=== PATIENT | male | born 1950 | race Caucasian/White ===

== ENCOUNTER 2016-05-03 07:57 | Day surgery (SDC) | payer OTHER ==
[~2016-05-03 07:57] MED LIST: Acetaminophen TAB* 325 MG PO PRN; Buffered Lidocaine 1% SYR 3ML* 3 ML/SYR SYRINGE INTRADERM ONE
[2016-05-03] MEDS ORDERED: Midazolam* 1 MG/ML 2 ML VIAL (2 MG) ONE ×2 (09:11→09:27)
[2016-05-03] MEDS ORDERED: acetaZOLAMIDE TAB* 250 MG ONE (09:49)
[2016-05-03] MEDS ORDERED: Cyclopentolate 1% OPTH.SOL* 2 ML BTL ONE (09:49)
[2016-05-03] MEDS ORDERED: Neomycin/Polymy/Dex OPHTH.OIN* 3.5 GM ONE (09:50)
[2016-05-03] MEDS ORDERED: Flurbiprofen 0.03% OPTH.SOL* 2.5 ML BTL ONE (09:50)
[2016-05-03] MEDS ORDERED: Tetracaine 0.5% OPTH.SOL 4 ML* 1 DROP BTL ONE (09:50)
[2016-05-03] MEDS ORDERED: Povidone Iodine 5% OPTH* 30 ML BTL ONE (09:50)
[2016-05-03] MEDS ORDERED: Lidocaine 1% MPF* 2 ML VIAL ONE (09:50)
[2016-05-03] MEDS ORDERED: Phenylephrine 2.5% OPTH.SOL* 2 ML BTL ONE (09:50)
[2016-05-03 10:17] VITALS: BP 139/79
--- NOTE | 2016-05-04 05:19 | OP ---
DATE OF OPERATION: 05/03/16 - [facility] DATE OF : 54 SURGEON: Dom Levi MD ANESTHESIOLOGIST: Shasha Garcia MD ANESTHESIA: Monitored anesthesia care. 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 POST-OP DIAGNOSIS: Cataract of left eye with pseudoexfoliation. IMPLANTS: MN60 AC 19.0 diopter lens, left eye. COMPLICATIONS: None. DESCRIPTION OF PROCEDURE: The patient was given phenylephrine 2.5% and cyclopentolate 1% eye drops to the operative eye in the preoperative area. The patient was brought to the operative room where a time-out was taken to the identify the correct patient, site and side of the surgery. The patient's left eye was prepped and draped in the usual sterile fashion and 5% Betadine. A second time- out was taken to verify the correct patient, site and side of surgery and correct lens selection. A lid speculum was placed to the left eye. A 1 mm paracentesis blade was used to make a clear corneal incision in the inferior temporal position. Preservative free 1% lidocaine was injected into anterior chamber. DuoVisc was then injected into the anterior chamber. A 2.75 mm keratome blade was used to make a triplanar incision at the superotemporal position. A cystotome was used to initiate a capsulorrhexis, which was completed with Utrata forceps in the continuous and curvilinear manner. Hydrodissection of the lens was then performed with BSS on a cannula. The lens could be spun in the capsular bag. The phacoemulsification handpiece was then used with a divide and conquer technique to remove the nucleus in its entirety with 13.45 CDE. The I/A handpiece was then used to remove the residual cortical lens material. DuoVisc was then injected to inflate the capsular bag. The planned MN60AC 19.0 diopter lens was then injected into the capsular bag. The residual DuoVisc was then removed from the eye with the I/A handpiece. The corneal incisions were then hydrated and no leaks occurred at physiologic pressure around 20 mmHg per palpation. The lid speculum was then removed and drapes removed. Maxitrol ointment was then placed over the surface of the operative eye. An adhesive patch and shield were then placed in the operative eye. The patient was taken to the postoperative area in stable condition. [id number]/[facility] #: [id number] [place]
== END 2016-05-03 10:26 | disposition home or self-care (01) ==
LOC: OREAST 07:57
PROVIDERS: ATTEND Student in an Organized Health Care Education/Training Program
DX: H26.8 Other specified cataract (principal)
CPT/HCPCS: A9270-GY; J2250; V2632

== ENCOUNTER 2019-04-17 10:39 | Day surgery (SDC) | payer MEDICARE, OTHER ==
[~2019-04-17 10:39] MED LIST changes: -Acetaminophen TAB* 325 MG PO PRN; -Buffered Lidocaine 1% SYR 3ML* 3 ML/SYR SYRINGE INTRADERM ONE; +Buffered Lidocaine 1% SYRIN* 1 ML/SYRINGE INTRADERM ONE; +Lactated Ringers 1000 ML Bag* 1,000 ML IV SCH
[2019-04-17] MEDS ORDERED: ceFAZolin 2 GM in NS PREMIX(*) 2 GM/100 ML BAG IVPB ONE (10:52)
[2019-04-17] MEDS ORDERED: Mineral Oil Sterile, TOPICAL* 25 ML BTL ONE (12:32)
[2019-04-17] MEDS ORDERED: Lidocaine 1% w EPI 1:100,000* MDV 20 ML VIAL ONE ×2 (12:32→12:33)
[2019-04-17] MEDS ORDERED: Bupivacaine 0.25% SDV PF* 10 ML VIAL INJ ONE (12:32)
[2019-04-17] MEDS ORDERED: Midazolam* 1 MG/ML 5 ML VIAL (5 MG) ONE ×2 (12:53→13:20)
[2019-04-17] MEDS ORDERED: fentaNYL* 50 MCG/ML 2 ML VIAL (100 MCG VIAL) ONE (13:08)
[2019-04-17] MEDS ORDERED: fentaNYL* 50 MCG/ML 2 ML VIAL (100 MCG VIAL) IV PRN (14:09)
[2019-04-17] MEDS ORDERED: oxyCODONE/Acetamin 5/325 MG* TAB PO PRN (14:09)
[2019-04-17] MEDS ORDERED: Naloxone* 0.4 MG/ML 1 ML VIAL IV PRN (14:09)
[2019-04-17] MEDS ORDERED: Ondansetron INJ* 2 MG/ML VIAL IV PRN (14:09)
[2019-04-17 15:04] VITALS: BP 133/67
== END 2019-04-17 15:05 | disposition home or self-care (01) ==
LOC: OR 10:39
PROVIDERS: ATTEND Plastic Surgery
DX: D03.61 Melanoma in situ of right upper limb, including shoulder (principal); J45.909 Unspecified asthma, uncomplicated; Z85.47 Personal history of malignant neoplasm of testis; G40.89 Other seizures
CPT/HCPCS: 88305; 88341; 88342; A9270-GY; J0690; J2250; J3010; J3490